=== PATIENT | male | born 1970 ===

== ENCOUNTER 2018-06-30 12:47 | Outpatient (CLI) | payer OTHER | END 2018-06-30 13:00 | disposition home or self-care (01) | LOC: OFIC 805 12:47 | DX: R09.81 Nasal congestion (principal); J32.8 Other chronic sinusitis; G50.1 Atypical facial pain ==

== ENCOUNTER 2019-09-27 12:10 | Day surgery (SDC) | payer OTHER | END 2019-09-27 16:50 | disposition home or self-care (01) | LOC: AMB-ENDOS 12:10 | PROVIDERS: ATTEND Surgery | DX: D12.4 Benign neoplasm of descending colon (principal); D12.8 Benign neoplasm of rectum; K64.8 Other hemorrhoids ==